=== PATIENT | male | born 1960 | race Caucasian/White ===

== ENCOUNTER 2017-01-11 22:35 | Observation (INO) | payer MEDICARE, MEDICAID ==
[2017-01-11 22:30] VITALS: BP 133/77; PULSE 66; RESP 20; TEMP 97.6; O2SAT 95
[~2017-01-11 22:35] MED LIST: CANA300T PO; FENO1TAB46 PO; GLIP10TA6 PO; METF1000 PO; PIOG30TA4 PO; SIMV40TA PO; WARF-23 PO
[2017-01-12 02:25] VITALS: PULSE 78
[2017-01-12 04:00] VITALS: PULSE 72
[2017-01-12 04:27] VITALS: BP 126/71; PULSE 65; RESP 18; TEMP 97.6; O2SAT 84
[2017-01-12 07:37] VITALS: BP 118/75; PULSE 64; RESP 18; TEMP 97.6; O2SAT 97
[2017-01-12 08:00] VITALS: PULSE 78
--- NOTE | 2017-01-12 10:25 | HHI.HP ---
HPI Primary Care Physician Non-Staff Chief Complaint Chest pain History of Present Illness This is a 56-year-old male that presents to ED with a complaint of intermittent chest discomfort for 3 days. First episode was a poking sensation lasting seconds and occurring 2 times. However yesterday reoccurred several times also lasting 30 seconds or less. States it felt like a needle. And no association shortness breath, nausea, or diaphoresis. Denies family history of CAD. Cannot recall recent stress testing. Denies recent illnesses. Review of Systems General: Patient denies fevers, chills recent, and recent travel HEENT: Patient denies headache, sore throat, difficulty swallowing. Cardiovascular: Has the chest discomfort as mentioned above. Denies sensation of heart beating rapidly or irregularly. No syncope. Denies diaphoresis. Respiratory: Denies shortness of breath or inspirational chest discomfort. Denies coughing wheezing or hemoptysis. GI: Patient denies nausea, vomiting, diarrhea, abdominal pain, bloody stools. Musculoskeletal: Patient denies joint pain or edema. Denies calf pain or edema. Neurovascular: Patient denies numbness, tingling, weakness in extremities. Denies headache. Endocrine: Denies polyuria and polydipsia. Hematologic: Denies easy bruising. Skin: Denies rash or itching. Past Family Social History Allergies: Coded Allergies: No Known Allergies (Unverified , 01/11/17) Past Medical History Hypertension, diabetes, hyperlipidemia history of an emboli however he does not know specifics however he is taking warfarin for the last 2 years. His PCP monitors his INR. Denies known CAD. Past Surgical History Cholecystectomy Reported Medications Reported Meds & Active Scripts Active Reported Invokana (Canagliflozin) 300 Mg Tab 300 Mg PO DAILY Take before 1st meal of day. Fenofibrate 40 Mg Tab 40 Mg PO DAILY Simvastatin 40 Mg Tab 40 Mg PO HS Pioglitazone (Pioglitazone HCl) 30 Mg Tab 30 Mg PO DAILY Metformin (Metformin HCl) 1,000 Mg Tab 1,000 Mg PO BIDPC With meals Glipizide 10 Mg Tab 10 Mg PO BIDAC Take 30 minutes before a meal Warfarin 5 Mg Tab 5 Mg PO DAILY Family History Denies family history of CAD. Social History Patient quit smoking 3 years ago prior that he smoked one half pack of cigarettes daily for 30 years. Occasional alcohol. Denies illicit drugs. Physical Exam Vital Signs Vital Signs Date Time Temp Pulse Resp B/P Pulse Ox O2 Delivery O2 Flow Rate FiO2 01/12/17 07:37 97.6 64 18 118/75 97 01/12/17 04:27 97.6 65 18 126/71 84 01/12/17 04:00 72 01/12/17 02:25 78 01/11/17 22:30 97.6 66 20 133/77 95 Physical Exam GENERAL: This is a well-nourished, well-developed patient, in no apparent distress. Patient speaks in clear complete sentences. Patient is pleasant. HEENT: Head is atraumatic and normocephalic. Neck is supple without lymphadenopathy and trachea is midline. No JVD or carotid bruits. CARDIOVASCULAR: Regular rate and rhythm without murmurs, gallops, or rubs. RESPIRATORY: Clear to auscultation. Breath sounds equal bilaterally. No wheezes , rales, or rhonchi. Chest wall is nontender. No use of accessory muscles. GASTROINTESTINAL: Abdomen is nontender, nondistended. Abdomen soft. No obvious pulsatile mass or bruit. No CVA tenderness. Strong femoral pulses bilaterally. Normal bowel sounds in all quadrants. MUSCULOSKELETAL: Patient is moving upper and lower extremities freely. No calf tenderness or edema, no Homans sign. Strong pulses in upper and lower extremities. NEUROLOGICAL: Patient is alert and oriented. Cranial nerves 2-12 are grossly intact. No focal deficits and speech is clear. SKIN: No rash and turgor is normal. Laboratory Laboratory Tests Test 01/12/17 01:30 Troponin I LESS THAN 0.02 Course EKGs have been sinus rhythm without significant ST segment depressions or elevations. Assessment and Plan Assessment and Plan * Chest pain: Patient had serial cardiac enzymes and EKGs for ruling out purposes. He was seen by Dr. John Garcia of cardiology in the chest pain center and will undergo a Efe protocol ETT. He'll be discharged home if stress test is nonischemic. * Supratherapeutic INR: Patient will hold his INR. He will be given copy of his INR to get further instructions by his PCP for tomorrow. * Diabetes: Follow diabetic diet. Resume medication. * Hyperlipidemia: Continue current medication. Patient is stable at this time. He is agreeable to this plan. Evan Garcia Jan 12, 2017 10:25
[2017-01-12] MEDS ORDERED: WARF-23 PO (10:27)
--- NOTE | 2017-01-12 10:28 | HHI.DCPOC ---
Discharge Care Plan Diagnosis: (1) Chest pain (2) Supratherapeutic INR (3) DM (diabetes mellitus) (4) Hyperlipidemia Goals to Promote Your Health * To prevent worsening of your condition and complications * To maintain your health at the optimal level Directions to Meet Your Goals Take your medications as prescribed Follow your dietary instruction Follow activity as directed Keep your appointments as scheduled Take your immunizations and boosters as scheduled If your symptoms worsen call your PCP, if no PCP go to Urgent Care Center or Emergency Room Smoking is Dangerous to Your Health. Avoid second hand smoke Call the 24-hour hour crisis hotline for domestic abuse at Evan Garcia Jan 12, 2017 10:28
[2017-01-12] MEDS ORDERED: DEXTROSE 50% IN WATER 50 ML VIAL(D50) IV PRN (10:30)
[2017-01-12] MEDS ORDERED: GLUCAGON 1 MG/ML VIAL IM/SQ PRN (10:30)
[2017-01-12] MEDS ORDERED: INSULIN ASPART SUPPLEMENTAL SCALE SQ SCH (11:00)
--- NOTE | 2017-01-12 15:56 | EKG ---
Date Performed: 01/12/2017 Time Performed: 02:31:24 PTAGE: 56 years EKG: Sinus rhythm NORMAL ECG NO PREVIOUS TRACING DOCTOR: John Garcia Interpretating Date/Time 01/12/2017 15:53:46
--- NOTE | 2017-01-12 16:23 | TR ---
Date Performed: 01/12/2017 Time Performed: 09:32:42 DOCTOR: John Garcia DRUG LIST: CLINICAL HISTORY: CHEST PAIN REASON FOR TEST: REASON FOR ENDING: OBSERVATION: CONCLUSION: Efe protocol performed. No chest discomfort. Test stopped when target heart rate r eached secondary to shortness of breath and leg fatigue. Maximum JX=738 Target YC=153 Target HR Achie pam=92.0% Maximum DM=631/82 Total Exercise Time=4:32 COMMENTS: Patient exercised using the Efe protocol. No electrocardiographic changes were seen to suggest ischemia. Hemodynamic response to exercise was normal. No significant arrhythmia was prese nt.
[2017-01-12] MEDS ORDERED: PRAVASTATIN SOD 80 MG TAB PO SCH (21:00)
== END 2017-01-12 14:39 | disposition home or self-care (01) ==
LOC: NEDDLT 22:35 → NEPGCP 22:45
PROVIDERS: ADMIT Internal Medicine Interventional Cardiology; ATTEND Internal Medicine Interventional Cardiology
DX: R07.89 Other chest pain (principal); I10 Essential (primary) hypertension; E11.9 Type 2 diabetes mellitus without complications; E78.5 Hyperlipidemia, unspecified; R79.1 Abnormal coagulation profile; Z79.01 Long term (current) use of anticoagulants; Z87.891 Personal history of nicotine dependence
CPT/HCPCS: 71010; 80048; 82550; 82948; 83735; 84484; 85025; 85610; 85730; 93005; 93017; 99285; G0378; 99281